=== PATIENT | female | born 1995 | race Hispanic/Latino ===

== ENCOUNTER → 2022-06-18 | Emergency (ER) | payer OTHER | END | disposition left against medical advice (07) | LOC: EDH 19:47 | DX: R10.9 Unspecified abdominal pain (principal); Z53.21 Procedure and treatment not carried out due to patient leaving prior to being seen by health care provider ==

== ENCOUNTER → 2022-07-13 | Outpatient (CLI) | payer MEDICAID | END | disposition home or self-care (01) | LOC: RAH 11:21 | PROVIDERS: ATTEND Family Medicine | DX: M54.41 Lumbago with sciatica, right side (principal); M54.2 Cervicalgia | CPT/HCPCS: 72040; 72100 ==